=== PATIENT | male | born 1990 | race Caucasian/White ===

== ENCOUNTER → 2023-05-15 | Outpatient (CLI) | payer OTHER | LOC: M RAD 13:22 | PROVIDERS: ATTEND Physician Assistant Medical | DX: M51.36 Other intervertebral disc degeneration, lumbar region (principal); M51.37 Other intervertebral disc degeneration, lumbosacral region ==

== ENCOUNTER → 2023-08-29 | Outpatient (CLI) | payer OTHER ==
[2023-08-29 16:02] LABS: BASO # 0.1 10^3/uL (0.0-0.2); BASO % 0.8 % (0.0-1.0); EOS # 0.3 10^3/uL (0.0-0.5); EOS % 3.4 % (0.0-3.0); HEMATOCRIT 48.7 % (42.0-52.0); HEMOGLOBIN 16.2 g/dl (13.5-17.5); LYMPH # 2.5 10^3/uL (1.5-5.0); LYMPH % 24.8 % (24.0-44.0); MEAN CORPUSCULAR HGB CONC 33.3 g/dl (32.0-36.5); MEAN CORPUSCULAR VOLUME 90.2 fl (80.0-96.0); MONO # 0.6 10^3/uL (0.0-0.8); MONO % 5.6 % (2.0-8.0); NEUTROPHILS # 6.6 10^3/uL (1.5-8.5); NEUTROPHILS % 65.1 % (36.0-66.0); PLATELET COUNT, AUTOMATED 322 10^3/uL (150-450); WHITE BLOOD COUNT 10.1 10^3/uL (4.0-10.0)
[2023-08-29 16:32] LABS: ALBUMIN 4.3 G/DL (3.2-5.2); ALKALINE PHOSPHATASE 71 U/L (46-116); ALT/SGPT 74 U/L (7.0-40); AST/SGOT 32 U/L (<34); BILIRUBIN,TOTAL 0.5 MG/DL (0.3-1.2); BLOOD UREA NITROGEN 14 MG/DL (9-23); CALCIUM LEVEL 9.9 MG/DL (8.5-10.1); CARBON DIOXIDE LEVEL 30 MMOL/L (20-31); CHLORIDE LEVEL 107 MMOL/L (98-107); CHOLESTEROL LEVEL 241 MG/DL (<200); CHOLESTEROL RISK RATIO 5.77 (<5); GLOMERULAR FILTRATION RATE > 60.0 (>60); GLUCOSE, FASTING 91 MG/DL (60-100); HDL CHOLESTEROL 41.7 MG/DL (>40); LDL CHOLESTEROL 151.9 MG/DL (<100); NON-HDL-C 199.3 MG/DL; POTASSIUM SERUM 4.6 MMOL/L (3.5-5.1); SODIUM LEVEL 141 MMOL/L (136-145); TOTAL PROTEIN 7.8 G/DL (5.7-8.2); TRIGLYCERIDES LEVEL 237 MG/DL (<150)
[2023-08-29 16:34] LABS: TOTAL 25(OH) VITAMIN D 10.4 NG/ML (20.0-100.0)
[2023-08-29 16:35] LABS: FREE T4 1.02 NG/DL (0.89-1.76)
[2023-08-29 16:59] LABS: HIV 1&2 SCREEN NEGATIVE (NEGATIVE)
[2023-08-29 17:06] LABS: HEPATITIS C VIRUS ABY INDEX 0.04 INDEX (<0.8)
[2023-08-29 17:30] LABS: THYROID STIMULATING HORMONE 1.554 uIU/ML (0.55-4.78)
[2023-08-29 17:43] LABS: HEMOGLOBIN A1c 5.2 % (4.0-6.0)
== END ==
LOC: M PLALAB 14:36
PROVIDERS: ATTEND Student in an Organized Health Care Education/Training Program
DX: M51.37 Other intervertebral disc degeneration, lumbosacral region (principal); K21.9 Gastro-esophageal reflux disease without esophagitis; Z76.89 Persons encountering health services in other specified circumstances

== ENCOUNTER → 2023-09-12 | Outpatient (REF) | payer OTHER | LOC: M SFHCPLAZ 16:51 | PROVIDERS: ATTEND Student in an Organized Health Care Education/Training Program | DX: K21.9 Gastro-esophageal reflux disease without esophagitis (principal) ==

== ENCOUNTER 2024-02-26 08:41 | Day surgery (SDC) | payer OTHER ==
[~2024-02-26] VITALS: Ht 180.3 cm; Wt 94.9 kg
[~2024-02-26 08:41] MED LIST: OMEP-173 PO
[2024-02-26] MEDS: NS 1,000 ML IV ONE (08:55)
[2024-02-26] MEDS ORDERED: LIDOCAINE 2% 100MG/5ML SDV (FOR ANES.) As Ordered ONE (10:21)
[2024-02-26] MEDS ORDERED: fentaNYL 100 MCG/2 ML INJECTION As Ordered ONE (10:21)
[2024-02-26] MEDS ORDERED: propofoL 500 MG/50 ML VIAL As Ordered ONE (10:21)
[2024-02-26 10:38] VITALS: TEMP 98.3
[2024-02-26 10:55] VITALS: BP 141/92; O2SAT 98
== END 2024-02-26 11:04 | disposition home or self-care (01) ==
LOC: M OPP 08:41
PROVIDERS: ATTEND Internal Medicine Gastroenterology
DX: R12 Heartburn (principal); K22.89 Other specified disease of esophagus; Z79.899 Other long term (current) drug therapy
CPT/HCPCS: 43235; J3010